=== PATIENT | male | born 1985 | race Caucasian/White ===

== ENCOUNTER → 2016-04-25 | Outpatient (CLI) | payer MEDICAID | END | disposition home or self-care (01) | LOC: MMGSC 13:25 | PROVIDERS: ATTEND Family Medicine | DX: N39.0 Urinary tract infection, site not specified (principal) | CPT/HCPCS: 87086 ==

== ENCOUNTER → 2016-05-07 | Outpatient (CLI) | payer MEDICAID ==
[2016-05-07 19:53] LABS: Basophils # (A) 0.1 k/uL (0-0.2); Basophils % (A) 1 %; CH 30.2; CHCM 33.2; Eosinophils # (A) 0.2 k/uL (0-0.7); Eosinophils % (A) 3 %; HCT 57.6 % (39.0-53.0); HDW 2.41; HGB 18.7 gm/dL (13.0-17.5); Luc # (Auto) 0.17; Luc % (Auto) 2; Lymphocytes # (A) 2.3 k/uL (1.0-4.8); Lymphocytes % (A) 26 %; MCH 29.5 pg (25.0-35.0); MCHC 32.4 g/dL (31.0-37.0); MCV 91.2 fL (80.0-100.0); Mean Platelet Volume 8.9; Monocytes # (A) 0.7 k/uL (0-1.0); Monocytes % (A) 7 %; Neutrophils # (A) 5.6 k/uL (1.3-7.7); Neutrophils % (A) 62 %; RBC 6.32 m/uL (4.30-5.90); RDW 12.8 % (11.5-15.5); WBC 8.9 k/uL (3.8-10.6); WBC (Perox) 8.95
[2016-05-07 19:59] LABS: ALT 33 U/L (21-72); AST 26 U/L (17-59); Alkaline Phosphatase 90 U/L (38-126); Anion Gap 12 mmol/L; Blood Urea Nitrogen 13 mg/dL (9-20); Calcium 9.8 mg/dL (8.4-10.2); Carbon Dioxide 26 mmol/L (22-30); Chloride 105 mmol/L (98-107); Cholesterol 202 mg/dL (<200); Glucose 70 mg/dL (74-99); HDL Cholesterol 41 mg/dL (40-60); Non-African American GFR(MDRD) >60 (>60 ml/min/1.73 sqM); Potassium 4.5 mmol/L (3.5-5.1); Sodium 143 mmol/L (137-145); Total Bilirubin 0.8 mg/dL (0.2-1.3); Total Protein 7.8 g/dL (6.3-8.2); Triglycerides 135 mg/dL (<150)
[2016-05-09 14:23] LABS: Gliadin AB IgA, Deaminated 5 UNITS (<20); Gliadin AB IgG, Deaminated 4 UNITS (<20)
== END ==
LOC: MMGSC 09:24
PROVIDERS: ATTEND Family Medicine
DX: Z00.00 Encounter for general adult medical examination without abnormal findings (principal); R10.9 Unspecified abdominal pain
CPT/HCPCS: 36415; 80053; 80061; 83516; 84439; 84443; 85025; 86003

== ENCOUNTER → 2016-08-29 | Outpatient (CLI) | payer MEDICAID ==
--- NOTE | 2016-08-29 11:07 | US ---
EXAMINATION TYPE: US abdomen complete DATE OF EXAM: 08/29/2016 COMPARISON: NONE CLINICAL HISTORY: 31-year-old male with Right Upper Quad Pain R10.11. TECHNIQUE: Multiple sonographic images of the abdomen are obtained. FINDINGS: Liver Length: 13.0 cm Gallbladder Wall: 0.2 cm CBD: 0.4 cm Spleen: 11.9 cm Right Kidney: 12.7 x 3.9 x 5.6 cm Left Kidney: 11.4 x 5.6 x 5.4 cm Pancreas: visualized portions wnl Liver: wnl Gallbladder: No stones seen Evidence for sonographic Wright's sign: No CBD: wnl Spleen: wnl Right Kidney: No hydronephrosis. Left Kidney: No hydronephrosis. Upper IVC: wnl Abd Aorta: wnl IMPRESSION: Unremarkable sonographic examination of the abdomen.
== END | disposition home or self-care (01) ==
LOC: RADUSWWP 09:40
PROVIDERS: ATTEND Family Medicine
DX: R10.11 Right upper quadrant pain (principal)
CPT/HCPCS: 76700

== ENCOUNTER 2016-10-18 10:54 | Emergency (ER) | payer MEDICAID ==
[2016-10-18 12:15] LABS: Basophils # (A) 0.1 k/uL (0-0.2); Basophils % (A) 1 %; CH 31.6; CHCM 35.7; Eosinophils # (A) 0.2 k/uL (0-0.7); Eosinophils % (A) 2 %; HCT 50.3 % (39.0-53.0); HDW 2.51; HGB 17.3 gm/dL (13.0-17.5); Luc # (Auto) 0.12; Luc % (Auto) 1; Lymphocytes # (A) 1.7 k/uL (1.0-4.8); Lymphocytes % (A) 19 %; MCH 30.5 pg (25.0-35.0); MCHC 34.4 g/dL (31.0-37.0); MCV 88.7 fL (80.0-100.0); Monocytes # (A) 0.6 k/uL (0-1.0); Monocytes % (A) 7 %; Neutrophils # (A) 6.4 k/uL (1.3-7.7); Neutrophils % (A) 71 %; RBC 5.67 m/uL (4.30-5.90); RDW 13.7 % (11.5-15.5); WBC 9.1 k/uL (3.8-10.6); WBC (Perox) 9.03
--- NOTE | 2016-10-18 12:15 | ED ---
Chest Pain HPI - General Chief Complaint: Chest Pain Stated Complaint: CHEST PAIN X 1 WEEK Time Seen by Provider: 10/18/16 11:30 Source: patient, RN notes reviewed Mode of arrival: ambulatory Limitations: no limitations - History of Present Illness Initial Comments: Is a 31-year-old male with a strong family history of heart disease in the 40s who has been smoking since he was 13 years old who complains about one week of intermittent episodes of palpitations and anxiety. 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 His anterior chest and both arms. He currently has no symptoms he has no fevers chills nausea vomiting sweats or other symptoms at this time. He was concerned because of his family history. He states at 9 AM this morning also smoked a cigarette he had the fluttering in his chest and numbness to his extremities. This is a same symptoms he's been having for last week or so but he states he does have anxiety. MD Complaint: other - Related Data Home Medications Medication Instructions Recorded Confirmed No Known Home Medications [No 10/18/16 10/18/16 Known Home Medications] Allergies Allergy/AdvReac Type Severity Reaction Status Date / Time erythromycin base AdvReac Abdominal Verified 10/18/16 11:05 [Erythromycin Base] Pain Review of Systems ROS Statement: Those systems with pertinent positive or pertinent negative responses have been documented in the HPI. ROS Other: All systems not noted in ROS Statement are negative. EKG Findings - EKG Results: EKG: interpreted by CHELO, sinus rhythm (Sinus bradycardia rate of 58 MD interval 118 QRS duration 84 QT since QTC of 46/398. CT wave changes.) Past Medical History Past Medical History: No Reported History Additional Past Medical History / Comment(s): [facility] History of Any Multi-Drug Resistant Organisms: C-DIFF Date of last positivie culture/infection: 2014 MDRO Source:: STOOL Past Surgical History: No Surgical Hx Reported Past Psychological History: ADD/ADHD Smoking Status: Current every day smoker Past Alcohol Use History: Rare Past Drug Use History: Marijuana General Exam - General Exam Comments Initial Comments: This is a well-developed well-nourished awake alert oriented times 3 male Limitations: no limitations General appearance: alert, in no apparent distress Head exam: Present: atraumatic, normocephalic, normal inspection Eye exam: Present: normal appearance, PERRL, EOMI. Absent: scleral icterus, conjunctival injection, periorbital swelling ENT exam: Present: normal exam, mucous membranes moist Neck exam: Present: normal inspection. Absent: tenderness, meningismus, lymphadenopathy Respiratory exam: Present: normal lung sounds bilaterally. Absent: respiratory distress, wheezes, rales, rhonchi, stridor Cardiovascular Exam: Present: regular rate, normal rhythm, normal heart sounds. Absent: systolic murmur, diastolic murmur, rubs, gallop, clicks GI/Abdominal exam: Present: soft, normal bowel sounds. Absent: distended, tenderness, guarding, rebound, rigid Extremities exam: Present: normal inspection, full ROM, normal capillary refill. Absent: tenderness, pedal edema, joint swelling, calf tenderness Back exam: Present: normal inspection Neurological exam: Present: alert, oriented X3, CN II-XII intact Psychiatric exam: Present: normal affect, normal mood Skin exam: Present: warm, dry, intact, normal color. Absent: rash Course Vital Signs 10/18/16 10/18/16 10/18/16 11:01 12:04 12:45 Temperature 99 F 97.9 F Pulse Rate 55 L 54 L 65 Respiratory 18 20 18 Rate Blood Pressure 126/77 131/73 126/64 O2 Sat by Pulse 100 98 98 Oximetry Chest Pain MDM - MDM I did review the imaging and reports no acute findings. Patient is feeling well he will be discharged I did recommend he follow-up with his doctor for outpatient stress test I also did discuss smoking cessation and risks factors the patient this conversation lasted 3.1 minutes. Disposition Clinical Impression: Palpitations, Atypical chest pain Disposition: HOME SELF-CARE Condition: Good Instructions: Palpitations (ED), Chest Pain (ED) Additional Instructions: Follow-up with her doctor and he recommended outpatient stress test. Also smoking cessation. Referrals: Opal Fuentes MD [Primary Care Provider] - 1-2 days
--- NOTE | 2016-10-18 12:21 | XR ---
EXAMINATION TYPE: XR chest 2V DATE OF EXAM: 10/18/2016 COMPARISON: NONE HISTORY: Chest pain per order. Palpitations. TECHNIQUE: Frontal and lateral views of the chest are obtained. FINDINGS: There is no focal air space opacity, pleural effusion, or pneumothorax seen. The cardiac silhouette size is within normal limits. The osseous structures are intact. IMPRESSION: No acute cardiopulmonary process.
[2016-10-18 12:28] LABS: ALT 30 U/L (21-72); AST 19 U/L (17-59); Alkaline Phosphatase 86 U/L (38-126); Anion Gap 9 mmol/L; Blood Urea Nitrogen 10 mg/dL (9-20); Calcium 9.6 mg/dL (8.4-10.2); Carbon Dioxide 21 mmol/L (22-30); Chloride 111 mmol/L (98-107); Glucose 79 mg/dL (74-99); INR 1.1 (<1.2); Non-African American GFR(MDRD) >60 (>60 ml/min/1.73 sqM); Partial Thromboplastin Time 25.7 sec (22.0-30.0); Potassium 4.5 mmol/L (3.5-5.1); Prothrombin Time 10.8 sec (9.0-12.0); Sodium 141 mmol/L (137-145); Total Bilirubin 0.6 mg/dL (0.2-1.3); Total Protein 7.4 g/dL (6.3-8.2)
[2016-10-18 12:37] LABS: Creatine Kinase 80 U/L (55-170)
[2016-10-18 12:50] LABS: Creatine Kinase MB 0.4 ng/mL (0.0-2.4); Troponin I <0.012 ng/mL (0.000-0.034)
[2016-10-18 13:14] VITALS: BP 129/68; PULSE 57; RESP 16; TEMP 98.3
== END 2016-10-18 13:24 | disposition home or self-care (01) ==
LOC: EC 10:54
DX: R07.89 Other chest pain (principal); R00.2 Palpitations; F41.9 Anxiety disorder, unspecified; F17.200 Nicotine dependence, unspecified, uncomplicated; Z88.1 Allergy status to other antibiotic agents
CPT/HCPCS: 36415; 71020; 80053; 82550; 82553; 83735; 83880; 84439; 84443; 84484; 85025; 85379; 85610; 85730; 93005; 99285

== ENCOUNTER → 2016-10-21 | Outpatient (CLI) | payer MEDICAID ==
--- NOTE | 2016-10-22 09:31 | NM ---
EXAMINATION TYPE: NM hepatobiliary w EF DATE OF EXAM: 10/21/2016 COMPARISON: NONE INDICATION: Right upper quadrant abdominal pain TECHNIQUE: After the intravenous administration of 5.2 mCi Tc 99m Mebrofenin hepatobiliary scintigrap hy is performed. Images were obtained immediately post injection. FINDINGS: There is prompt uptake and excretion of radiotracer by the liver. Extrahepatic ducts are identified at 6 minutes. The gallbladder is visualized within 6 minutes. Small bowel activity is noted within 12 minutes. At one hour 8 ounces of oral ensure plus is given to mimic CCK and gallbladder ejection fraction is c alculated at 83 %, which is elevated. (Normal >35% and <80%.). IMPRESSION: 1. Mild hyperkinesia with 83% ejection fraction.
== END | disposition home or self-care (01) ==
LOC: RADNMMAIN 14:55
PROVIDERS: ATTEND Family Medicine
DX: K76.89 Other specified diseases of liver (principal)
CPT/HCPCS: 78226; A9537

== ENCOUNTER → 2016-10-22 | Outpatient (CLI) | payer MEDICAID | LOC: MMGSC 16:25 | PROVIDERS: ATTEND Family Medicine | DX: I25.10 Atherosclerotic heart disease of native coronary artery without angina pectoris (principal); R07.89 Other chest pain; R00.2 Palpitations | CPT/HCPCS: 83497 ==

== ENCOUNTER → 2016-10-24 | Outpatient (CLI) | payer MEDICAID ==
--- NOTE | 2016-10-24 18:39 | ECHOF ---
Referral Reason:R07.9 chest pain Z82.49 hx of mi MEASUREMENTS -------- HEIGHT: 162.6 cm WEIGHT: 97.1 kg BP: RVIDd: 2.6 cm (< 3.3) IVSd: 1.0 cm (0.6 - 1.1) LVIDd: 4.4 cm (3.9 - 5.3) LVPWd: 0.9 cm (0.6 - 1.1) IVSs: 1.1 cm LVIDs: 3.3 cm LVPWs: 1.3 cm LA Diam: 3.2 cm (2.7 - 3.8) Ao Diam: 3.4 cm (2.0 - 3.7) AV Cusp: 2.2 cm (1.5 - 2.6) LA Diam: 3.2 cm (2.7 - 3.8) MV EXCURSION: 22.213 mm (> 18.000) MV EF SLOPE: 137 mm/s (70 - 150) EPSS: 0.3 cm MV E Bernardo: 0.91 m/s MV A Bernardo: 0.60 m/s MV E/A Ratio: 1.53 RAP: 5.00 mmHg RVSP: 21.15 mmHg FINDINGS -------- Sinus rhythm. This was a technically adequate study. LV size, wall thickness and systolic function are normal, with an EF greater than 55%. The right ventricle is normal in size. The left atrial size is normal. The right atrial size is normal. The aortic valve is trileaflet, and appears structurally normal. No aortic stenosis or regurgitation. Mild mitral regurgitation is present. Mild tricuspid regurgitation present. There is no evidence of pulmonary hypertension. The right ventricular systolic pressure, as measured by Doppler, is 21.15mmHg. There is no pulmonic regurgitation present. The aortic root size is normal. There is no pericardial effusion. CONCLUSIONS -------- 1. LV size, wall thickness and systolic function are normal, with an EF greater than 55%. 2. The aortic valve is trileaflet, and appears structurally normal. No aortic stenosis or regurgitation. 3. Mild mitral regurgitation is present. 4. Mild tricuspid regurgitation present. 5. There is no evidence of pulmonary hypertension. 6. The right ventricular systolic pressure, as measured by Doppler, is 21.15mmHg. 7. There is no pulmonic regurgitation present. 8. The aortic root size is normal. 9. There is no pericardial effusion. OIL HEATER OPERATOR: Anamaria Roy RDCS
--- NOTE | 2016-10-28 17:09 | HM ---
HOLTER MONITOR REPORT Patient in his diary indicated some episodes of shooting chest pain and one episode when he felt dizzy and a fluttering sensation in the chest. Predominant rhythm appears to be sinus with a heart rate ranging from 40 to 140 beats per minute with average heart rate of 63 beats per minute. Rare isolated PACs and PVCs were noted. At that time, patient complained of some fluttering feeling in the chest. He was in a sinus rhythm at 76 beats per minute. At that time he complained of some dizziness also. He was in a sinus rhythm at 84 beats per minute. A maximal heart rate of 140 beats was recorded at 12:46 a.m., but at that time no specific activities were reported. This is an unremarkable 24-hour DCG recording. The predominant rhythm is sinus without any significant tachy- or bradyarrhythmias. MMODL / IJN: [id number] /
== END | disposition home or self-care (01) ==
LOC: RADECHMAIN 08:05
PROVIDERS: ATTEND Family Medicine
DX: I08.1 Rheumatic disorders of both mitral and tricuspid valves (principal); R00.2 Palpitations; Z82.49 Family history of ischemic heart disease and other diseases of the circulatory system
CPT/HCPCS: 93225; 93226; 93306

== ENCOUNTER → 2016-10-27 | Outpatient (CLI) | payer MEDICAID ==
--- NOTE | 2016-10-27 12:25 | EST ---
EXERCISE STRESS DATE OF SERVICE: 10/27/2016 AGE: 31. SEX: Male. HT: 5'11" WT: 214 PROTOCOL: Tevin. STAGE: IV DURATION OF EXERCISE: 11:10 HEART RATE REST: 65 BLOOD PRESSURE REST: 117/85 MAXIMUM HEART RATE ACHIEVED: 163 MAXIMUM BLOOD PRESSURE: 168/88 85% MPHR: 162 100% MPHR: 191 METS: 12.1 INDICATIONS: Chest pain. CLINICAL INFORMATION: Baseline EKG revealed normal sinus rhythm without significant ST changes. Patient walked on a standard Tevin protocol for 11 minute 10 seconds achieved a maximal heart rate of 163 beats per minute which is more than 85% of predicted maximal. He developed fatigue, shortness of breath, but did not have any angina. EKG did not reveal any ST- segment changes to indicate ischemia. There was no arrhythmia. By EKG criteria, this is a negative stress test with excellent exercise capacity. There was no angina or arrhythmia. MMNINOL / IJN: [id number] /
== END | disposition home or self-care (01) ==
LOC: RADNMMAIN 10:26
PROVIDERS: ATTEND Family Medicine
DX: R07.9 Chest pain, unspecified (principal); R06.02 Shortness of breath; R53.83 Other fatigue; Z82.49 Family history of ischemic heart disease and other diseases of the circulatory system
CPT/HCPCS: 93017

== ENCOUNTER 2016-10-28 07:55 | Emergency (ER) | payer MEDICAID ==
[2016-10-28] MEDS ORDERED: SODIUM CHLORIDE 0.9% 1,000 ML IV STA ×2 (08:25)
[2016-10-28] MEDS ORDERED: ONDANSETRON 4 MG/2 ML VIAL IVP STA (08:25)
[2016-10-28] MEDS ORDERED: DICYCLOMINE 10 MG/ML 2 ML AMP IM STA (08:26)
[2016-10-28 08:44] LABS: Basophils % (A) 0 %; CH 31.5; CHCM 35.7; Eosinophils # (A) 0.3 k/uL (0-0.7); Eosinophils % (A) 2 %; HCT 51.4 % (39.0-53.0); HGB 17.7 gm/dL (13.0-17.5); Luc # (Auto) 0.14; Luc % (Auto) 1; Lymphocytes # (A) 1.6 k/uL (1.0-4.8); Lymphocytes % (A) 13 %; MCH 30.6 pg (25.0-35.0); MCHC 34.5 g/dL (31.0-37.0); MCV 88.7 fL (80.0-100.0); Mean Platelet Volume 9.1; Monocytes # (A) 0.7 k/uL (0-1.0); Monocytes % (A) 6 %; Neutrophils # (A) 9.8 k/uL (1.3-7.7); Neutrophils % (A) 79 %; RBC 5.79 m/uL (4.30-5.90); RDW 13.6 % (11.5-15.5); WBC 12.5 k/uL (3.8-10.6)
[2016-10-28 08:48] LABS: Appearance,Urine Clear (Clear); Bilirubin,Urine Negative (Negative); Glucose,Urine (UA) Negative (Negative); Ketones,Urine Negative (Negative); Leukocyte Esterase,Urine Negative (Negative); Nitrite,Urine Negative (Negative); Protein,Urine Negative (Negative); Specific Gravity,Urine 1.015 (1.001-1.035); UA Billing (MACRO vs. MICRO) CHEM; Urobilinogen,Urine <2.0 mg/dL (<2.0)
--- NOTE | 2016-10-28 08:48 | ED ---
General Adult HPI - General Chief complaint: Abdominal Pain Stated complaint: abdominal pain Time Seen by Provider: 10/28/16 08:18 Source: patient, RN notes reviewed Mode of arrival: ambulatory Limitations: no limitations - History of Present Illness Initial comments: Patient 31-year-old male who presents emergency room today with a chief complaint of abdominal pain over the last 5 or 6 days. State pain diffusely through the abdomen cramping in nature. Patient does admit that he's had some diarrhea back and forth. Patient denies any other complaints or symptoms. Patient denies any recent fever, chills, shortness of breath, chest pain, numbness or tingling, dysuria or hematuria, constipation, headaches or visual changes, or any other complaints. - Related Data Home Medications Medication Instructions Recorded Confirmed ALPRAZolam [Xanax] 0.25 mg PO DAILY PRN 10/28/16 10/28/16 Previous Rx's Medication Instructions Recorded Dicyclomine [Bentyl] 20 mg PO QID #20 tablet 10/28/16 Ondansetron Odt [Zofran ODT] 4 mg PO Q8HR PRN #20 tab 10/28/16 Allergies Allergy/AdvReac Type Severity Reaction Status Date / Time erythromycin base AdvReac Abdominal Verified 10/28/16 08:40 [Erythromycin Base] Pain Review of Systems ROS Statement: Those systems with pertinent positive or pertinent negative responses have been documented in the HPI. ROS Other: All systems not noted in ROS Statement are negative. Past Medical History Past Medical History: No Reported History Additional Past Medical History / Comment(s): [facility] History of Any Multi-Drug Resistant Organisms: C-DIFF Date of last positivie culture/infection: 2014 MDRO Source:: STOOL Past Surgical History: No Surgical Hx Reported Past Psychological History: ADD/ADHD Smoking Status: Current every day smoker Past Alcohol Use History: Rare Past Drug Use History: Marijuana General Exam - General Exam Comments Initial Comments: General: The patient is awake and alert, in no distress, and does not appear acutely ill. Eye: Pupils are equal, round and reactive to light, extra-ocular movements are intact. No nystagmus. There is normal conjunctiva bilaterally. No signs of icterus. Ears, nose, mouth and throat: There are moist mucous membranes and no oral lesions. Neck: The neck is supple, there is no tenderness or JVD. Cardiovascular: There is a regular rate and rhythm. No murmur, rub or gallop is appreciated. Respiratory: Lungs are clear to auscultation, respirations are non-labored, breath sounds are equal. No wheezes, stridor, rales, or rhonchi. Gastrointestinal: Normal appearance them. Normal bowel sounds. Abdomen soft on palpation. Patient does have mild tenderness diffusely throughout abdomen. No rebound tenderness or guarding. No CVA tenderness. Musculoskeletal: Normal ROM, no tenderness. Strength 5/5. Sensation intact. Pulses equal bilaterally 2+. Neurological: A&O x 3. CN II-XII intact, There are no obvious motor or sensory deficits. Coordination appears grossly intact. Speech is normal. Skin: Skin is warm and dry and no rashes or lesions are noted. Psychiatric: Cooperative, appropriate mood & affect, normal judgment. Limitations: no limitations Course Vital Signs 10/28/16 10/28/16 08:03 10:37 Temperature 98.4 F 97.6 F Pulse Rate 70 76 Respiratory 20 18 Rate Blood Pressure 132/76 109/64 O2 Sat by Pulse 98 99 Oximetry Medical Decision Making - Medical Decision Making Patient reexamined here in the emergency room show no signs of distress. Resting comfortably. Abdomen soft nontender at this time. Patient feeling better after medications. Given Zofran and Bentyl and fluids here in the ER. Patient does have 12,[address] of his abdomen and pelvis is negative for any acute abdomen maladies. At this time patient will be discharged home advise follow up his family doctor. He is advised return if symptoms increase or worsen. He'll be continued on nausea medication and Bentyl. Advised return here to the emergency room if symptoms increase or worsen or for any other concerns. - Lab Data Result diagrams: 10/28/16 08:35 10/28/16 08:35 Lab Results 10/28/16 10/28/16 10/28/16 Range/Units 08:35 08:35 08:36 WBC 12.5 H (3.8-10.6) k/uL RBC 5.79 (4.30-5.90) m/uL Hgb 17.7 H (13.0-17.5) gm/dL Hct 51.4 (39.0-53.0) % MCV 88.7 (80.0-100.0) fL MCH 30.6 (25.0-35.0) pg MCHC 34.5 (31.0-37.0) g/dL RDW 13.6 (11.5-15.5) % Plt Count 204 (150-450) k/uL Neutrophils % 79 % Lymphocytes % 13 % Monocytes % 6 % Eosinophils % 2 % Basophils % 0 % Neutrophils # 9.8 H (1.3-7.7) k/uL Lymphocytes # 1.6 (1.0-4.8) k/uL Monocytes # 0.7 (0-1.0) k/uL Eosinophils # 0.3 (0-0.7) k/uL Basophils # 0.0 (0-0.2) k/uL Sodium 142 (137-145) mmol/L Potassium 4.2 (3.5-5.1) mmol/L Chloride 108 H (98-107) mmol/L Carbon Dioxide 19 L (22-30) mmol/L Anion Gap 15 mmol/L BUN 11 (9-20) mg/dL Creatinine 0.93 (0.66-1.25) mg/dL Est GFR (MDRD) Af Amer >60 (>60 ml/min/1.73 sqM) Est GFR (MDRD) Non-Af >60 (>60 ml/min/1.73 sqM) Glucose 106 H (74-99) mg/dL Calcium 10.0 (8.4-10.2) mg/dL Total Bilirubin 0.7 (0.2-1.3) mg/dL AST 17 (17-59) U/L ALT 22 (21-72) U/L Alkaline Phosphatase 76 (38-126) U/L Total Protein 7.6 (6.3-8.2) g/dL Albumin 4.6 (3.5-5.0) g/dL Amylase 49 (30-110) U/L Lipase 46 (23-300) U/L Urine Color Yellow Urine Appearance Clear (Clear) Urine pH 6.0 (5.0-8.0) Ur Specific [place] 1.015 (1.001-1.035) Urine Protein Negative (Negative) Urine Glucose (UA) Negative (Negative) Urine Ketones Negative (Negative) Urine Blood Negative (Negative) Urine Nitrite Negative (Negative) Urine Bilirubin Negative (Negative) Urine Urobilinogen <2.0 (<2.0) mg/dL Ur Leukocyte Esterase Negative (Negative) Disposition Clinical Impression: Abdominal pain Disposition: HOME SELF-CARE Condition: Poor Instructions: Abdominal Pain (ED) Additional Instructions: Please use medication as discussed. Please follow-up with family doctor in the next 2 days. Please return to emergency room if the symptoms increase or worsen or for any other concerns. Prescriptions: Dicyclomine [Bentyl] 20 mg PO QID #20 tablet Ondansetron Odt [Zofran ODT] 4 mg PO Q8HR PRN #20 tab PRN Reason: Nausea Referrals: Opal Fuentes MD [Primary Care Provider] - 1-2 days Time of Disposition: 10:58
[2016-10-28 09:10] LABS: ALT 22 U/L (21-72); AST 17 U/L (17-59); Alkaline Phosphatase 76 U/L (38-126); Amylase 49 U/L (30-110); Anion Gap 15 mmol/L; Blood Urea Nitrogen 11 mg/dL (9-20); Carbon Dioxide 19 mmol/L (22-30); Chloride 108 mmol/L (98-107); Glucose 106 mg/dL (74-99); Non-African American GFR(MDRD) >60 (>60 ml/min/1.73 sqM); Potassium 4.2 mmol/L (3.5-5.1); Sodium 142 mmol/L (137-145); Total Bilirubin 0.7 mg/dL (0.2-1.3); Total Protein 7.6 g/dL (6.3-8.2)
--- NOTE | 2016-10-28 09:26 | XR ---
EXAMINATION TYPE: XR KUB DATE OF EXAM: 10/28/2016 9:14 AM CLINICAL HISTORY: Generalized mid abdominal pain for one week with nausea and diarrhea bilateral fla nk pain. TECHNIQUE: 2 upright KUB images of the abdomen are obtained. COMPARISON: None. FINDINGS: Scattered gas is seen in non-distended stomach and small bowel loops. Gas and fecal materia l is seen in non-distended colon. Left-sided pelvic phlebolith is seen. No pneumoperitoneum is presen t. Lung bases are clear. Osseous structures are intact. IMPRESSION: Overall nonobstructive bowel gas pattern.
[2016-10-28] MEDS ORDERED: RX INFO: IV CONTRAST WAS GIVEN 1 EACH MISC MISCELLANE PRN (09:33)
[2016-10-28 10:39] VITALS: BP 109/64; PULSE 76; RESP 18; TEMP 97.6
--- NOTE | 2016-10-28 10:39 | CT ---
EXAMINATION TYPE: CT abdomen pelvis w con DATE OF EXAM: 10/28/2016 COMPARISON: NONE HISTORY: Patient complains of bilateral upper quadrant pain. CT DLP: 856.4 mGycm Automated exposure control for dose reduction was used. CONTRAST: CT scan of the abdomen pelvis is performed with IV Contrast, patient injected with 100 mL of Omnipaqu e 300. FINDINGS- LUNG BASES- No significant abnormality is appreciated. LIVER/GB- No gross abnormality is appreciated. PANCREAS- No gross abnormality is seen. SPLEEN- No gross abnormality is seen. ADRENALS- No gross abnormality is seen. KIDNEYS/BLADDER- no hydronephrosis nephrolithiasis or renal mass. BOWEL- no bowel dilatation. Normal appendix. LYMPH NODES- No greater than 1cm abdominal or pelvic lymph nodes are appreciated. OSSEOUS STRUCTURES- No significant abnormality is seen. Spina bifida occulta lumbosacral junction. OTHER- aorta of normal caliber. No free fluid or free air. IMPRESSION- 1. No acute process.
--- NOTE | 2016-10-30 04:36 | CDI ---
Documentation Clarification OP Dear Dr.Christophe Jefferson Please do addendum to ED report for missing NS stop time Thank you, Diaz Parra Home Inspector If you have any questions, please contact Demo Coordinator at [phone] [facility]
== END 2016-10-28 11:08 | disposition home or self-care (01) ==
LOC: EC 07:55
DX: R10.9 Unspecified abdominal pain (principal); R19.7 Diarrhea, unspecified; F17.200 Nicotine dependence, unspecified, uncomplicated; Z88.1 Allergy status to other antibiotic agents
CPT/HCPCS: 99284; 96374; 96361 ×2; 96372; 36415; 80053; 82150; 83690; 85025; 81003; 74000; 74177; J0500; J2405; Q9967

== ENCOUNTER → 2016-10-31 | Outpatient (CLI) | payer MEDICAID ==
[2016-10-31 20:16] LABS: Basophils % (A) 0 %; CH 30.6; CHCM 34.3; Eosinophils # (A) 0.1 k/uL (0-0.7); Eosinophils % (A) 1 %; HCT 53.2 % (39.0-53.0); HDW 2.31; Luc # (Auto) 0.11; Luc % (Auto) 1; Lymphocytes # (A) 1.5 k/uL (1.0-4.8); Lymphocytes % (A) 17 %; MCH 30.2 pg (25.0-35.0); MCHC 33.8 g/dL (31.0-37.0); MCV 89.4 fL (80.0-100.0); Mean Platelet Volume 9.6; Monocytes # (A) 0.5 k/uL (0-1.0); Monocytes % (A) 6 %; Neutrophils # (A) 6.6 k/uL (1.3-7.7); Neutrophils % (A) 74 %; RBC 5.95 m/uL (4.30-5.90); RDW 12.5 % (11.5-15.5); WBC 8.9 k/uL (3.8-10.6); WBC (Perox) 8.96
== END | disposition home or self-care (01) ==
LOC: MMGSC 14:47
PROVIDERS: ATTEND Family Medicine
DX: D72.829 Elevated white blood cell count, unspecified (principal)
CPT/HCPCS: 36415; 85025

== ENCOUNTER → 2016-11-24 | Outpatient (CLI) | payer MEDICAID | END | disposition home or self-care (01) | LOC: MMGSC 11:33 | PROVIDERS: ATTEND Family Medicine | DX: R10.9 Unspecified abdominal pain (principal) | CPT/HCPCS: 36415; 80074; 82378; 87390 ==

== ENCOUNTER → 2016-11-24 | Outpatient (CLI) | payer MEDICAID ==
[2016-11-24 18:20] LABS: CHCM 32.2; HCT 53.6 % (39.0-53.0); HDW 2.39; HGB 17.3 gm/dL (13.0-17.5); MCH 30.2 pg (25.0-35.0); MCHC 32.3 g/dL (31.0-37.0); MCV 93.6 fL (80.0-100.0); Mean Platelet Volume 9.6; RBC 5.73 m/uL (4.30-5.90); RDW 12.7 % (11.5-15.5)
[2016-11-24 19:02] LABS: ALT 37 U/L (21-72); AST 26 U/L (17-59); Alkaline Phosphatase 97 U/L (38-126); Anion Gap 13 mmol/L; Blood Urea Nitrogen 13 mg/dL (9-20); C Reactive Protein 5.6 mg/L (<10.0); Calcium 9.5 mg/dL (8.4-10.2); Carbon Dioxide 23 mmol/L (22-30); Chloride 105 mmol/L (98-107); Glucose 103 mg/dL (74-99); Non-African American GFR(MDRD) >60 (>60 ml/min/1.73 sqM); Potassium 4.6 mmol/L (3.5-5.1); Sodium 141 mmol/L (137-145); Total Bilirubin 0.5 mg/dL (0.2-1.3); Total Protein 7.2 g/dL (6.3-8.2)
[2016-11-24 19:28] LABS: Erythrocyte Sedimentation Rate 2 mm/hr (0-15)
[2016-11-25 01:51] LABS: Tis Transglutaminase IgA Unit <0.5 AI; Tis Transglutaminase IgG Unit 6.7 U/mL
== END | disposition home or self-care (01) ==
LOC: MMGSC 11:15
DX: R10.9 Unspecified abdominal pain (principal)
CPT/HCPCS: 36415; 80053; 83516; 84439; 84443; 85027; 85652; 86140

== ENCOUNTER → 2019-06-23 | Outpatient (CLI) | payer MEDICAID | END | disposition home or self-care (01) | LOC: LABWHC1 07:06 | PROVIDERS: ATTEND Family Medicine | DX: R05 Cough (principal); K30 Functional dyspepsia | CPT/HCPCS: 87635 ==

== ENCOUNTER → 2019-12-29 | Outpatient (CLI) | payer MEDICAID | END | disposition home or self-care (01) | LOC: LABWHC1 11:38 | PROVIDERS: ATTEND Family Medicine | DX: Z20.828 Contact with and (suspected) exposure to other viral communicable diseases (principal) | CPT/HCPCS: U0003; C9803 ==

== ENCOUNTER → 2021-08-13 | Outpatient (CLI) | payer MEDICAID ==
[~2021-08-13] MED LIST: SODIUM CHLORIDE 0.9% 500 ML 500 ML in EMPTY BAG 1 BAG IV PRN
[2021-08-13 08:19] VITALS: RESP 16; TEMP 97.8
[2021-08-13 08:22] LABS: HGB 18.3 gm/dL (13.0-17.5); MCH 30.4 pg (25.0-35.0); MCHC 32.4 g/dL (31.0-37.0); MCV 93.7 fL (80.0-100.0); Mean Platelet Volume 9.4; Platelet Count 203 k/uL (150-450); RBC 6.02 m/uL (4.30-5.90); RDW 13.6 % (11.5-15.5); WBC 12.4 k/uL (3.8-10.6)
[2021-08-13 08:23] LABS: HCT 56.4 % (39.0-53.0)
[2021-08-13 08:52] VITALS: BP 116/77; PULSE 60
== END ==
LOC: PROCWHC3 07:49
PROVIDERS: ATTEND Nurse Practitioner Family
DX: D45 Polycythemia vera (principal); Z88.1 Allergy status to other antibiotic agents; F17.200 Nicotine dependence, unspecified, uncomplicated
CPT/HCPCS: 36415; 85027; 99195

== ENCOUNTER → 2021-11-05 | Outpatient (CLI) | payer MEDICAID ==
[2021-11-05 09:36] VITALS: RESP 14; TEMP 97.9
[2021-11-05 09:48] LABS: HGB 18.7 gm/dL (13.0-17.5); MCH 30.3 pg (25.0-35.0); MCHC 32.9 g/dL (31.0-37.0); MCV 91.9 fL (80.0-100.0); Mean Platelet Volume 9.5; Platelet Count 179 k/uL (150-450); RBC 6.16 m/uL (4.30-5.90); RDW 13.6 % (11.5-15.5); WBC 10.8 k/uL (3.8-10.6)
[2021-11-05 09:49] LABS: HCT 56.6 % (39.0-53.0)
[2021-11-05 10:35] VITALS: BP 128/79; PULSE 78
== END ==
LOC: PROCWHC3 09:06
PROVIDERS: ATTEND Nurse Practitioner Family
DX: D75.1 Secondary polycythemia (principal); Z88.1 Allergy status to other antibiotic agents; F17.200 Nicotine dependence, unspecified, uncomplicated
CPT/HCPCS: 36415; 85027; 99195

== ENCOUNTER → 2023-09-08 | Outpatient (CLI) | payer MEDICAID ==
--- NOTE | 2023-09-08 17:28 | CA ---
Transthoracic Echo Report Name: Dez Lawrence Age: 38 Gender: M : 1985 Exam Date: 09/08/2023 15:28 Exam Location: [facility] Ht (in): 71 Wt (lb): 215 Ordering Physician: Weston Gimenez MD ([id number]) Attending/Referring Phys: Weston Gimenez MD ([id number]) Artist Color Separation Katrin Casillas RDCS Procedure CPT: Indications: I48.0 PAROXYSMAL ATRIAL FIBRILLATION Cardiac Hx: Technical Quality: Good Contrast 1: Total Dose (mL): Contrast 2: Total Dose (mL): MEASUREMENTS (Male / Female) Normal Values 2D ECHO LV Diastolic Diameter PLAX 5.0 cm 4.2 - 5.9 / 3.9 - 5.3 cm LV Systolic Diameter PLAX 2.8 cm IVS Diastolic Thickness 1.4 cm 0.6 - 1.0 / 0.6 - 0.9 cm LVPW Diastolic Thickness 1.3 cm 0.6 - 1.0 / 0.6 - 0.9 cm LV Relative Wall Thickness 0.5 RV Internal Dim ED PLAX 2.5 cm LA Systolic Diameter LX 3.8 cm 3.0 - 4.0 / 2.7 - 3.8 cm LV Diastolic Volume MOD BP 90.6 cm??? 67 - 155 / 56 - 104 cm??? LV Systolic Volume MOD BP 34.1 cm??? - 58 / 19 - 49 cm??? LV Ejection Fraction MOD BP 62.4 % >= 55 % LV Cardiac Index MOD BP 1367.0 cm???/min???m??? LV Diastolic Volume MOD 4C 86.6 cm??? LV Systolic Volume MOD 4C 29.4 cm??? LV Ejection Fraction MOD 4C 66.0 % LV Cardiac Index MOD 4C 1382.4 cm???/min???m??? LV Diastolic Length 4C 8.0 cm LV Systolic Length 4C 6.5 cm LV Diastolic Volume MOD 2C 89.8 cm??? LV Systolic Volume MOD 2C 36.4 cm??? LV Ejection Fraction MOD 2C 59.4 % LV Cardiac Index MOD 2C 1289.6 cm???/min???m??? LV Diastolic Length 2C 7.6 cm LV Systolic Length 2C 7.0 cm LA Volume 61.4 cm??? 18 - 58 / 22 - 52 cm??? LA Volume Index 27.5 cm???/m??? 16 - 28 cm???/m??? Aorta at Sinotubular Diameter 2.8 cm DOPPLER MV Area PHT 3.0 cm??? Mitral E Point Velocity 99.7 cm/s Mitral A Point Velocity 81.5 cm/s Mitral E to A Ratio 1.2 MV Deceleration Time 251.4 ms TR Peak Velocity 243.1 cm/s TR Peak Gradient 23.6 mmHg Right Ventricular Systolic Press 28.0 mmHg FINDINGS Left Ventricle Left ventricular ejection fraction is estimated at 55-60 %. Mildly increased septal wall thickness. No obvious regional wall motion abnormalities. Left ventricular cavity size normal. Right Ventricle Normal right ventricular size and function. Right ventricular systolic pressure within normal limits. Right Atrium Mild right atrial dilatation. Left Atrium Mildly increased left atrial volume. Mitral Valve Structurally normal mitral valve. Trace mitral regurgitation. No mitral stenosis. Aortic Valve Trileaflet aortic valve. No aortic valve stenosis or regurgitation. Tricuspid Valve Structurally normal tricuspid valve. Mild tricuspid regurgitation. No tricuspid stenosis. Pulmonic Valve Structurally normal pulmonic valve. Trace pulmonic regurgitation. Pericardium No pericardial or pleural effusion. Aorta Normal size aortic root and proximal ascending aorta. CONCLUSIONS Normal LV function Previewed by: Dr. Alexis Collins MD (Electronically Signed) Final Date: 08 September 2023 17:28
== END | disposition home or self-care (01) ==
LOC: RADECHMAIN 15:17
PROVIDERS: ATTEND Internal Medicine Interventional Cardiology
DX: I48.0 Paroxysmal atrial fibrillation (principal); R00.2 Palpitations
CPT/HCPCS: 93306

== ENCOUNTER → 2023-09-09 | Outpatient (CLI) | payer MEDICAID ==
--- NOTE | 2023-09-09 18:00 | CA ---
Stress Echo Report Dez Lawrence Age: 38 Gender: M : 1985 Exam Date: 09/09/2023 10:32 Exam Location: [facility] Ht (in): 71 Wt (lb): 215 Ordering Physician: Weston Gimenez MD ([id number]) Referring Physician: Weston Gimenez MD ([id number]) Cook Restaurant: JACEK, Technologist Procedure CPT: Indication: I48.0 PAROXYSMAL ATRIAL FIBRILLATION ICD-9 Codes: Rhythm: Patient History: LEANA, palpitations and hypertension Cardiac Medications: Medications in past 24 hours: Contrast: Stress Results Protocol: Tevin Total dose(mL): Exercise Duration (min:sec): 8;[address] Depression (mm): Angina Score: Meléndez Score: METS: 10.3 Resting HR: 67 Resting BP: 127 / 69 Peak HR: 118 Peak BP: 194 / 60 Max Predicted HR: 184 64 % Max Predicted HR Target HR: 156 Double Product: [id number] Stress Summary: BP Response: Reason for Termination: MAX EXERTION Cardiac Symptoms: Fatigue ECG Analysis Resting ECG: Normal sinus rhythm normal axis normal intervals Stress ECG: Patient exercised on Tevin protocol for 9 minutes achieving 85% of predicted maximum heart rate without chest pain or diagnostic ST segment depression Arrhythmia: Echo Analysis Resting Echo: Normal left ventricular size wall motion systolic function Peak Echo Analysis: Normal hyperdynamic response MEASUREMENTS (Male/Female) Normal Values CONCLUSIONS Good exercise tolerance Negative stress test by EKG criteria Negative stress echo Dr. Alexis Collins MD (Electronically Signed) Final Date: 09 September 2023 17:59
== END | disposition home or self-care (01) ==
LOC: RADNMMAIN 10:07
PROVIDERS: ATTEND Internal Medicine Interventional Cardiology
DX: I48.0 Paroxysmal atrial fibrillation (principal); R00.2 Palpitations
CPT/HCPCS: 93351